=== PATIENT | male | born 1960 | race Two or more races ===

== ENCOUNTER → 2024-09-25 | Outpatient (CLI) | payer BC, SELFPAY ==
[2024-09-25 08:37] LABS: Basophils # (Auto) 0.1 Thou/mm3 (0.0-0.2); Basophils % (Auto) 1 % (0-2.5); Eosinophils # (Auto) 0.9 Thou/mm3 (0.0-0.5); Eosinophils % (Auto) 13 % (0-10); Hematocrit 40.9 % (41.0-53.0); Hemoglobin 13.7 g/dL (13.5-16.0); Immature Granulocytes % (Auto) 0 % (0-0); Immature Granulocytes Auto 0.01 Thou/mm3 (0.00-0.00); Lymphocytes # (Auto) 1.9 Thou/mm3 (1.0-4.8); Lymphocytes % (Auto) 29 % (10-50); Mean Corpuscular HGB Conc 33.5 g/dl (31.0-37.0); Mean Corpuscular Hemoglobin 31.2 pg (25.0-35.0); Mean Corpuscular Volume 93 fL (80-100); Monocytes # (Auto) 0.6 Thou/mm3 (0.0-0.8); Monocytes % (Auto) 9 % (0-12); Neutrophils # (Auto) 3.3 Thou/mm3 (1.8-7.7); Neutrophils % (Auto) 49 % (37-80); Nucleated Red Blood Cell % 0 /100 WBC (0); Platelet Count 260 Thou/mm3 (140-440); RDW Standard Deviation 42.4 fL (35.1-43.9); Red Blood Count 4.39 Miln/mm3 (4.50-5.90); White Blood Count 6.7 Thou/mm3 (3.8-10.6)
[2024-09-25 08:51] LABS: Alanine Aminotransferase 16 U/L (10-49); Albumin, Serum 4.2 gm/dL (3.4-4.8); Albumin/Globulin Ratio 1.7 (1.2-2.2); Alkaline Phosphatase 48 U/L (46-116); Anion Gap 6 (7-16); Aspartate Amino Transferase 19 U/L (0-34); BUN/Creatinine Ratio 17 Ratio (12-20); Bilirubin,Total 0.6 mg/dL (0.3-1.2); Blood Urea Nitrogen 17 mg/dL (9-23); Calcium 8.9 mg/dL (8.3-10.6); Calcium (Corrected) 8.9 mg/dL (8.5-10.1); Carbon Dioxide 28.1 mMol/L (20.0-31.0); Cardiac Risk Estimate 3.5 RATIO (4.0-6.7); Chloride 106 mMol/L (98-107); Cholesterol 109 mg/dL (132-200); Globulin 2.5 gm/dL (2.3-3.5); Glucose 104 mg/dL (74-106); HDL Cholesterol 31 mg/dL (40-60); LDL Cholesterol,Calculated 45 mg/dL (0-130); Osmolality,Calculated 280 (275-295); Potassium 4.4 mMol/L (3.4-5.1); Sodium 140 mMol/L (136-145); Thyroid Stimulating Hormone 2.84 uIU/mL (0.55-4.78); Total Protein 6.7 gm/dL (5.7-8.2); Triglycerides 166 mg/dL (30-150); Uric Acid 4.6 mg/dL (3.7-9.2); eGFR > 60 See Note
== END | disposition home or self-care (01) ==
LOC: COPL 06:42
PROVIDERS: PCP Family Medicine; Referring Provider Family Medicine; Visit Provider Family Medicine
DX: E78.1 Pure hyperglyceridemia (principal); N42.9 Disorder of prostate, unspecified; M10.9 Gout, unspecified; Z13.1 Encounter for screening for diabetes mellitus; Z13.29 Encounter for screening for other suspected endocrine disorder
CPT/HCPCS: 36415; 80053; 80061; 84153; 84443; 84550; 85025

== ENCOUNTER 2024-12-07 20:26 | Emergency (ER) | payer BC, SELFPAY ==
[2024-12-07 20:27] VITALS: BMI 39.9
[2024-12-07 20:44] VITALS: BP 144/80; PULSE 79; RESP 18; TEMP 37.2; O2SAT 95
--- NOTE | 2024-12-07 20:50 | PD.EDEYE ---
ED Eye Problem RME/HPI General Chief complaint: Eye Problems Stated complaint: poss FB R eye Time Seen by Provider: 12/07/24 20:34 Arrival date/time: 12/07/24 20:26 RME / HPI RME / HPI Narrative: 64-year-old male presents to the ED with a complaint of right eye pain and watering with blurry vision since this morning. 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 He feels a scratching type sensation in the eye. His last tetanus was approximately 7 years ago. MD chief complaint: eye pain, eye redness, eye injury, vision change and foreign body Related Data Home Medications ?Medication ?Instructions ?Recorded ?Confirmed allopurinol 300 mg tablet 1 tab PO QDAY 03/06/22 03/06/22 amlodipine 2.5 mg tablet 1 tab PO QDAY 03/06/22 03/06/22 colchicine 0.6 mg tablet 1 tab PO UD PRN Muscle Pain 03/06/22 03/06/22 simvastatin 20 mg tablet 1 tab PO QDAY 03/06/22 03/06/22 Previous Rx's ?Medication ?Instructions ?Recorded olopatadine 0.2 % eye drops 1 drp ophthalmic (eye) QDAY PRN 12/07/24 (Pataday Once Daily Relief) Pain and irritation #2.5 mL polymyxin B sulfate 10,000 1 drp ophthalmic (eye) Q3H 7 days 12/07/24 unit-trimethoprim 1 mg/mL eye drops #10 mL Allergies Allergy/AdvReac Type Severity Reaction Status Date / Time No Known Allergies Allergy Verified 12/07/24 20:32 Review of Systems Review of Systems Systems Reviewed: All systems reviewed, normal except as documented Past Medical History Past Medical History NEUROLOGIC: Negative Neurological Disorders or Seizures CARDIAC: Positive Cardiac Disorders, Hypercholesterolemia and Hypertension; Negative Congestive Heart Failure RESPIRATORY: Negative Chronic Obstructive Pulmonary Disease (COPD) GASTROINTESTINAL: Negative Gastrointestinal Disorders GENITOURINARY: Negative Genitourinary Disorders or Renal Disease MUSCULOSKELETAL: Positive Musculoskeletal Disorders and Gout ENDOCRINE: Negative Endocrine Disorders, Diabetes Mellitus Type 1 or Diabetes Mellitus Type 2 HEMATOLOGIC: Negative Blood Disorders OTHER HISTORY: Negative Autoimmune Disease, Blood Transfusions, Blood Transfusion Reaction, Anesthesia Reactions, MRSA, Clostridium Difficile or Cancer Family History FAMILY HISTORY: Negative Family Cardiac Disorders Social History SMOKING STATUS: Never smoker ED Exam Narrative Physical exam: Alert and oriented, very pleasant 64-year-old male, nontoxic-appearing, afebrile, mild acute distress due to eye discomfort with watering. Scleral and conjunctiva erythema. Eyelids everted for exam. No foreign body noted in either upper or lower eyelids. Metcalf lamp exam with fluorescein dye after tetracaine drops utilized for anesthesia. No fluorescein dye uptake noted in the cornea, sclera, conjunctiva. No obvious foreign body noted on initial exam. Lungs are clear, regular rate and rhythm without murmurs. Course Course Course Narrative: Eyelids everted for exam. No foreign body noted in either upper or lower eyelids. Metcalf lamp exam with fluorescein dye after tetracaine drops utilized for anesthesia. No fluorescein dye uptake noted in the cornea, sclera, conjunctiva. Quality Measures none Orders Category Date Time Status Metcalf Lamp to Bedside X1 Care 12/07/24 20:53 Active Fluorescein-Benoxin 0.3%-0.4% Med 12/07/24 20:52 Discontinued 2 drop RIGHT EYE X1 ONE Vital Signs Vital signs: Vital Signs Temperature 99.0 F 12/07/24 20:44 Pulse Rate 79 12/07/24 20:44 Respiratory Rate 18 12/07/24 20:44 Blood Pressure 144/80 H 12/07/24 20:44 Pulse Oximetry (%) 95 12/07/24 20:44 Oxygen Delivery Method Room Air 12/07/24 20:44 Eye MDM Narrative MDM Narrative:: 64-year-old male presents to the ED with a complaint of right eye pain and watering with blurry vision since this morning. 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 He feels a scratching type sensation in the eye. His last tetanus was approximately 7 years ago. Alert and oriented, very pleasant 64-year-old male, nontoxic-appearing, afebrile, mild acute distress due to eye discomfort with watering. Scleral and conjunctiva erythema. Eyelids everted for exam. No foreign body noted in either upper or lower eyelids. Metcalf lamp exam with fluorescein dye after tetracaine drops utilized for anesthesia. No fluorescein dye uptake noted in the cornea, sclera, conjunctiva. No rust ring noted. No obvious foreign body noted on initial exam. Lungs are clear, regular rate and rhythm without murmurs. Patient data External records reviewed:: None Clinical information provided by:: patient Social determinants that could affect healthcare access:: none Patient has the following chronic illnesses:: Hypertension, hyperlipidemia How is presenting disease/condition affected by chronic disease/condition?: uneffected by Evaluation data The following diagnostics were reviewed and interpreted by me:: other (specify) (N/A) Lab and/or radiology exams considered but not ordered:: N/A Interpretation Summary: N/A Medications / Prescriptions Medications or Prescriptions considered but not ordered:: N/A Medication administrations:: Medication Administration History Discontinued Medications Fluorescein Sodium/Benoxinate HCl (Fluorescein-Benoxin 0.3%-0.4% 1 Drop) 2 drop RIGHT EYE X1 ONE Stop: 12/07/24 20:53 Last Admin: 12/07/24 21:04 Dose: 2 drop Documented By: ALLEN Comments: USED BY PROVIDER Tetracaine and fluorescein dye Consultations Consultation(s) initiated? (list below): Yes Consultation #1 (Physician, Specialty, Details): Discussed case with Dr. Raymond, attending physician. Advised him of inability to obtain ocular pressures with Mitchell-Pen, therefore unable to rule out acute glaucoma due to ciliary flush. He states to do just treat for keratoconjunctivitis with antibiotic ointment and to follow-up with his primary care physician. Diagnosis Eye Problem Differential Diagnosis: corneal abrasion, conjunctivitis, acute iritis, hyphema, glaucoma, corneal ulcer and ruptured globe Most likely diagnosis given after review of the tests above:: Possible keratoconjunctivitis Admission Indicated Admission indicated?: not indicated Admission Request Was there a request for admission?: No Disposition Plan Disposition Plan: Discharge Discharge Attestation Discharge Attestation: The patient and all family members were given an opportunity to ask questions and understood the discharge instructions. Discharge instructions specifically effects, indications for sooner follow up or return to the emergency department, and the expected course of current diagnosis. Patient condition: Stable Discharge Plan Plan Patient Disposition: HOME (Self Care) Discharge Disposition comment: Stable and improved Prescriptions/Referrals Prescriptions/Med Rec: New polymyxin B sulf-trimethoprim 10,000 unit- 1 mg/mL drops 1 drp ophthalmic (eye) Q3H 7 Days Qty: 10 0RF Rx Instructions: while awake; do not exceed 6 doses in 24 hours olopatadine [Pataday Once Daily Relief] 0.2 % drops 1 drp ophthalmic (eye) QDAY PRN (Reason: Pain and irritation) Qty: 2.5 0RF No Action amlodipine 2.5 mg tablet 1 tab PO QDAY Patient Comments: TAKE 1 TABLET BY MOUTH EVERY DAY simvastatin 20 mg tablet 1 tab PO QDAY Patient Comments: TAKE 1 TABLET BY MOUTH EVERY DAY IN THE EVENING allopurinol 300 mg tablet 1 tab PO QDAY Patient Comments: TAKE 1 TABLET BY MOUTH EVERY DAY colchicine 0.6 mg tablet 1 tab PO UD PRN (Reason: Muscle Pain) Patient Comments: TAKE 2 TABLETS BY MOUTH INITIALLY, THEN TAKE 1 TAB IN 1 HR NEEDED FOR GOUT Referrals: No Primary/Family,Physician [Primary Care Provider] - In 1 week Problem List Clinical Impression: Keratoconjunctivitis of right eye Patient/Caregiver Discharge Instructions Education Materials: Conjunctivitis Caused by Irritation Additional Instructions: Burtrum los antibioticos elaine lo prescrito y complete elcurso a pesar de que puede sentirse major. Chas un seguimiento con sanches medico de atencion primaria en 24 a 48 horas. Regresar al departamento de emergencias por cualquier sintoma nuevo o que empeore. Print Language: [place] Stand Alone Forms: Jaki Award Info., Patient Portal Info Letter PA/FELIPE Supervising Physician DEBBI/FELIPE Supervising Physician: Dr Raymond
[2024-12-07] MEDS: FLUORESCEIN-BENOXIN 0.3%-0.4% 1 DROP 2 DROP RIGHT EYE (21:04)
== END 2024-12-07 22:04 | disposition home or self-care (01) ==
PROVIDERS: Emergency Provider Emergency Medicine
DX: H16.201 Unspecified keratoconjunctivitis, right eye (principal)
CPT/HCPCS: 99283; Z7110; Z7610

== ENCOUNTER → 2025-01-22 | Outpatient (CLI) | payer BC, SELFPAY ==
--- NOTE | 2025-01-22 16:26 | XR_ITS ---
Examination: Knee, right , 3 views Technique: Knee AP, lateral, oblique 3 views Date and time of exam: January 22, 2025 1655 hours INDICATIONS: Knee pain beginning 4 weeks ago. FINDINGS: Moderate osteoarthritis medial joint space Mild to moderate osteoarthritis patellofemoral joint No fracture Small knee effusion Meniscus calcification IMPRESSION: Moderate osteoarthritis medial joint space Mild to moderate osteoarthritis patellofemoral joint
== END | disposition home or self-care (01) ==
PROVIDERS: PCP Family Medicine; Referring Provider Family Medicine; Visit Provider Family Medicine
DX: M17.12 Unilateral primary osteoarthritis, left knee (principal)
CPT/HCPCS: 73562

== ENCOUNTER → 2025-03-17 | Outpatient (CLI) | payer BC, SELFPAY ==
--- NOTE | 2025-03-17 08:45 | XR_ITS ---
Exam: MRI knee without contrast, left Date and time of exam: March 17, 2025, 0854 hours INDICATIONS: Anterior left knee pain knee swelling joint clicking weakness paresthesias 2 months Technique: Multiple axial, coronal, and sagittal sections on the knee have been obtained. T2-Weighted sagittal, fat-suppressed images, TR 3,500, TE 62, T2 weighted coronal fat-saturated images, TR 3,500, TE 62 Proton density sagittal sections, TR 1800, TE 31. T-1 weighted coronal images, TR 524, TE 13.0 Findings: Medial meniscus anterior horn intact. Medial meniscus, body meniscocapsular separation, horizontal oblique linear tear, peripheral. Posterior horn medial meniscus large horizontal linear tear communicating inferior articular surface 4 cm medial popliteal cyst. Lateral meniscus anterior horn intrasubstance degeneration Lateral meniscus, body is intact Posterior horn lateral meniscus is intact Anterior cruciate ligament moderate sprain Posterior cruciate ligament appears intact. Knee effusion is moderate. Increased signal in the patellar tendinitis patellar insertion Inflammatory change or fracture of Hoffa's fat pad is not seen. Medial patellar facet demonstrates moderate thinning. Lateral patellar facet cartilage demonstrates moderate thinning. Trochlear cartilage demonstrates moderate thinning. Marrow signal increased medial tibial metaphyseal region. Medial collateral ligament appears intact. Illiotibial band and fibular collateral ligament are intact. Biceps femoris tendons appear intact. Medial femoral condylar articular cartilage demonstrates severe thinning. Lateral femoral condylar articular cartilage demonstratesmoderate thinning. Tibial plateau cartilage demonstrates severe medial thinning. Impression: Tears of the body and posterior horn medial meniscus Meniscocapsular separation body the medial meniscus Moderate sprain anterior cruciate ligament Patellar tendon tendinitis
== END | disposition home or self-care (01) ==
LOC: SMRI 07:53
PROVIDERS: PCP Family Medicine; Referring Provider Family Medicine; Visit Provider Family Medicine
DX: S83.242A Other tear of medial meniscus, current injury, left knee, initial encounter (principal); S83.105A Unspecified dislocation of left knee, initial encounter; S83.512A Sprain of anterior cruciate ligament of left knee, initial encounter; X58.XXXA Exposure to other specified factors, initial encounter; M76.52 Patellar tendinitis, left knee
CPT/HCPCS: 73721